=== PATIENT | female | born 1950 | race Caucasian/White ===

== ENCOUNTER 2020-08-16 09:52 | Day surgery (SDC) | payer MEDICARE ==
[2020-08-11 14:00] LABS: BASOPHILS # (AUTO) 0.1 X10'3 (0-0.2); BASOPHILS % (AUTO) 0.6 % (0-1); EOSINOPHILS # (AUTO) 0.2 X10'3 (0-0.9); EOSINOPHILS % (AUTO) 1.3 % (0-6); MEAN CORPUSCULAR HEMOGLOBIN 29.5 PG (27.0-31.0); MEAN CORPUSCULAR HGB CONC 32.9 g/dL (33.0-36.5); MEAN CORPUSCULAR VOLUME 89.8 FL (78-98); MONOCYTES # (AUTO) 1.1 X10'3 (0-0.9); MONOCYTES % (AUTO) 8.9 % (2-12); NEUTROPHILS # (AUTO) 7.7 X10'3 (1.8-7.7); NEUTROPHILS % (AUTO) 64.2 % (42-75); PRE OP HEMOGLOBIN 13.1 g/dL (12.0-16.0); PRE OP PLATELET COUNT 331 X10'3 (140-440); RED BLOOD COUNT 4.45 X10'6 (4.20-5.60); RED CELL DISTRIBUTION WIDTH 13.8 % (11.5-14.5)
[2020-08-11 14:17] LABS: ALBUMIN 3.6 G/DL (3.4-5.0); ALBUMIN/GLOBULIN RATIO 0.8 (1.1-1.5); ALKALINE PHOSPHATASE 77 IU/L (46-116); BLOOD UREA NITROGEN 26 MG/DL (7-18); BUN/CREATININE RATIO 15.8 (6.6-38.0); CALCIUM 9.3 MG/DL (8.5-10.1); CHLORIDE 105 MMOL/L (99-107); CREATININE 1.65 MG/DL (0.40-0.90); PRE OP ALT 17 U/L (30-65); PRE OP ANION GAP 9 (8-16); PRE OP AST 14 U/L (10-37); PRE OP BILIRUB, TOTAL 0.2 MG/DL (0.0-1.0); PRE OP GLUCOSE 116 MG/DL (70-104); PRE OP POTASSIUM 4.5 MMOL/L (3.4-5.1); PRE OP SODIUM 141 MMOL/L (135-145); TOTAL CARBON DIOXIDE 26.7 MMOL/L (24-32); TOTAL PROTEIN 7.9 G/DL (6.4-8.2); eGFR 31 ML/MIN
[~2020-08-16] VITALS: Ht 171.4 cm; Wt 143.9 kg
[2020-08-16] VITALS (11 sets, daily range): BP systolic 138–164; BP diastolic 56–87
[~2020-08-16 09:52] MED LIST: ASPI-1264 PO; DILT120C10 PO; FLUO20CA39 PO; HYDR12.55 PO; INDOCYANINE GREEN 25 MG/10 ML VIAL IV ONE; INSU100I40 SQ; LISI40TA13 PO; LOVA20TA2 PO; PRIM50TA27 PO; clindamycin-Cleocin 900mg/D5W 50 ML IV ONE; famotidine 20mg tablet PO ONE; ringers solution, lacted 1,000 ML IV SCH
[2020-08-16] MEDS ORDERED: BUPIVAcaine/PF 2.5 mg/ml (0.25%) 30ml vial ONE (10:15)
[2020-08-16] MEDS ORDERED: LIDOcaine 1% 30ml preserv. free vial ONE (10:15)
[2020-08-16] MEDS ORDERED: fentaNYL/PF 50MCG/1 ML 2ML syringe ONE ×2 (10:18→11:22)
[2020-08-16] MEDS ORDERED: midazolam 1 mg/ML 2ml injection ONE (10:19)
[2020-08-16] MEDS ORDERED: propofol inj 20 ML IV ONE (10:20)
[2020-08-16] MEDS ORDERED: LIDOcaine 2% (20mg/ml) 5ml vial ONE (10:20)
[2020-08-16] MEDS ORDERED: rocuronium 10mg/ml inj IV ONE ×2 (10:20→11:40)
[2020-08-16] MEDS ORDERED: ringers solution, lacted 1,000 ML IV SCH (10:30)
[2020-08-16] MEDS ORDERED: HYDROmorphone/PF 0.2 MG/ML SYRINGE IV PRN ×2 (10:30)
[2020-08-16] MEDS ORDERED: ondansetron/PF 4mg/2ml inj IV PRN (10:30)
[2020-08-16] MEDS ORDERED: morphine 2 MG/ML inj. syringe IV PRN (10:30)
[2020-08-16] MEDS ORDERED: sevoflurane 250ml liquid IH ONE (10:50)
[2020-08-16] MEDS ORDERED: labetalol 20mg/4ml (5mg/ml) syringe IV ONE (10:50)
[2020-08-16] MEDS ORDERED: glycopyrrolate 0.2mg/ml inj ONE (11:40)
[2020-08-16] MEDS ORDERED: neostigmine methylsulfate 1 MG/ML 10ml vial ONE (11:40)
[2020-08-16] MEDS ORDERED: ondansetron/PF 4mg/2ml inj ONE (11:40)
[2020-08-16] MEDS ORDERED: acetaminophen 1,000mg/100ml IV 100 ML IV ONE (12:03)
[2020-08-16] MEDS ORDERED: ePHEDrine 50MG/ML INJ. ONE (12:04)
[2020-08-16] MEDS ORDERED: sugammadex 200mg/2ml injection IV ONE (12:17)
--- NOTE | 2020-08-16 12:20 | NUR ---
BLOOD SUGAR 142. Addendum: 08/16/20 at 1253 by Suyapa Siegel RN Amended: Links added.
--- NOTE | 2020-08-16 12:20 | NUR ---
Received from OR via [facility]BE IN STABLE CONDITION, accompanied by Anesthesiologist and JUNIOR GRAPHIC DESIGNER report given by Vicente. Addendum: 08/16/20 at 1232 by Suyapa Siegel RN Amended: Links added.
[2020-08-16] MEDS ORDERED: oxyCODONE/APAP 5-325mg tablet PO PRN ×2 (12:35)
--- NOTE | 2020-08-16 13:12 | NUR ---
PATIENT GIVEN IS AND INSTRUTED ON USE. Addendum: 08/16/20 at 1313 by Suyapa Siegel RN Amended: Links added.
--- NOTE | 2020-08-16 14:00 | NUR ---
PATIENT DISCHARED FROM PACU IN STABLE CONDITION AFTER WRITTEN AND VERBAL DISCHARGE INSTRUCTIONS GIVEN. PATIENT GAVE VERBAL UNDERSTANDING OF INSTRUCTIONS GIVEN. PATIENT LEFT FACILITY VIA WHEELCHAIR WITH RN. Addendum: 08/16/20 at 1403 by Suyapa Siegel RN Amended: Links added.
== END 2020-08-16 14:00 | disposition home or self-care (01) ==
LOC: PAS 09:52
PROVIDERS: ATTEND Surgery
DX: K80.10 Calculus of gallbladder with chronic cholecystitis without obstruction (principal); Z20.822 Contact with and (suspected) exposure to COVID-19; F17.210 Nicotine dependence, cigarettes, uncomplicated; I10 Essential (primary) hypertension; Z79.899 Other long term (current) drug therapy; F32.9 Major depressive disorder, single episode, unspecified; E11.9 Type 2 diabetes mellitus without complications; Z79.82 Long term (current) use of aspirin; Z98.890 Other specified postprocedural states; E66.01 Morbid (severe) obesity due to excess calories; Z79.4 Long term (current) use of insulin; Z88.0 Allergy status to penicillin; Z83.3 Family history of diabetes mellitus; Z82.49 Family history of ischemic heart disease and other diseases of the circulatory system; Z82.61 Family history of arthritis
CPT/HCPCS: 36415; 47563; 80053; 82948; 85025; 93005; C9399; J0131; J2001; J2250; J2405; J2704; J2710; J3010; J3490; J7120; U0003; U0005; 88304; A4215; A4618; A7000